=== PATIENT | female | born 1940 | race Caucasian/White ===

== ENCOUNTER 2016-09-21 11:29 | Emergency (ER) | payer MEDICARE, MEDICAID ==
[~2016-09-21] VITALS: Ht 165.1 cm; Wt 71.5 kg
[~2016-09-21 11:29] MED LIST: ACET-1757 PO; ACID1TAB7 PO; AMOX1TAB12 PO; ASPI325T4 PO; BISA10SU54 PR; CEFD300C2 PO; DOCU100T3 PO; DOXY100C15 PO; ENOX40SY4 SQ; ERGO500017 PO; FAMO-79 PO; FLUD0.1T PO; FLUT9.9S NAS; FURO-93 PO; GUAI-103 PO; HYDR-3138 PO; HYDR-3240 PO; LEVE500T53 PO; LISI1TAB7 PO; LOSA50TA6 PO; MAG355OR15 PO; MAGN30OR PO; MULT-115 PO; OXYC-302 PO; OXYC5SOL8 PO; OXYC5TAB3 PO; POTA20TA14 PO; SENN-1 PO; SIMV10TA3 PO; SIMV20TA PO; SULF1TAB3 PO; [UNRECOGNIZED DRUG - REMARK]
[2016-09-21 11:30] VITALS: BP 175/93
== END 2016-09-21 12:02 | disposition home or self-care (01) ==
LOC: ED 11:55
DX: Z76.0 Encounter for issue of repeat prescription (principal); I10 Essential (primary) hypertension; N19 Unspecified kidney failure; Z87.01 Personal history of pneumonia (recurrent)
CPT/HCPCS: 99283

== ENCOUNTER 2018-05-25 10:43 | Inpatient (IN) | payer MEDICAID, MEDICARE ==
[~2018-05-25] VITALS: Ht 166.4 cm; Wt 72.4 kg
[~2018-05-25 10:43] MED LIST changes: +ASPI325T17 PO; -ASPI325T4 PO; -CEFD300C2 PO; +CEFD300C37 PO; -HYDR-3138 PO; +HYDR-3237 PO; -LOSA50TA6 PO; +LOSA50TA7 PO; -SENN-1 PO; +SENN-92 PO; +SULF-169 PO; -SULF1TAB3 PO
[2018-05-25 12:47] LABS: MEAN CORPUSCULAR HEMOGLOBIN 24.7 pg (27.0-34.8); MEAN CORPUSCULAR HGB CONC 31.3 g/dL (32.4-35.8); MEAN CORPUSCULAR VOLUME 78.8 fL (80-100); MEAN PLATELET VOLUME 7.7 fL (7.4-10.4); PLATELET COUNT 557 x10^3/uL (130-400); RED BLOOD COUNT 4.52 x10^6/uL (3.82-5.3); RED CELL DISTRIBUTION WIDTH 17.7 % (9.6-15.2)
[2018-05-25 12:56] LABS: ALANINE AMINOTRANSFERASE 22 U/L (12-78); ALBUMIN 3.6 g/dL (3.4-5.0); ANION GAP 10 mmol/L (5-15); CALCIUM 8.8 mg/dL (8.5-10.1); CHLORIDE 111 mmol/L (98-107); CREATININE 0.93 mg/dL (0.55-1.02)
[2018-05-25 13:00] LABS: ALKALINE PHOSPHATASE 85 U/L (45-117); BILIRUBIN,TOTAL 0.5 mg/dL (0.2-1.0); TOTAL PROTEIN 6.9 g/dL (6.4-8.2)
[2018-05-25] MEDS ORDERED: SODIUM CHLORIDE FLUSH 10ML SYR IVF ONE (13:00)
[2018-05-25 13:05] LABS: HEMOGRAM NOTE RECHECKED; MD YES
[2018-05-25 13:09] LABS: EOS#(MANUAL) 0.23 x10^3/uL (0.0-0.4); EOS% (MANUAL) 4 % (1-7); LYMPH#(MANUAL) 1.68 x10^3/uL (1-3.4); LYMPHS% (MANUAL) 29 % (22-44); MONOS#(MANUAL) 0.64 x10^3/uL (0.3-2.7); MONOS% (MANUAL) 11 % (2-9); SEG#(MANUAL) 3.25 x10^3/uL (1.8-6.8); SEGS% (MANUAL) 56 % (42-75)
[2018-05-25 13:10] LABS: <PLATELET ESTIMATE> INCREASED; <PLT MORPHOLOGY> NORMAL PLT MORPH; ANISOCYTOSIS 1+; HYPOCHROMIA 1+; MICROCYTOSIS 1+
[2018-05-25] MEDS ORDERED: FUROSEMIDE 20 MG/2 ML IV ONE (13:30)
[2018-05-25] MEDS ORDERED: ENOXAPARIN 80 MG/0.8 ML SQ ONE (13:37)
[2018-05-25] MEDS ORDERED: SODIUM CHLORIDE FLUSH 10ML SYR IVF PRN (14:00)
[2018-05-25] MEDS ORDERED: FUROSEMIDE 20 MG/2 ML ONE (14:07)
[2018-05-25] MEDS ORDERED: ENOXAPARIN 80 MG/0.8 ML ONE (14:07)
[2018-05-25 14:14] LABS: MICROSCOPIC AUTO
[2018-05-25 14:16] LABS: CULTURE INDICATED? YES
[2018-05-25] MEDS ORDERED: POTA25TA4 PO (14:25)
[2018-05-25] MEDS ORDERED: LOSA25TA25 PO (14:25)
[2018-05-25] MEDS ORDERED: SIMV10TA3 PO (14:25)
[2018-05-25 16:49] LABS: ABSOLUTE RETICS # 0.064 x10^6/uL (0.5-2.5); RED BLOOD COUNT 4.52 x10^6/uL (3.82-5.3); RETICULOCYTE COUNT % 1.42 % (0.5-1.5)
[2018-05-25] MEDS ORDERED: FUROSEMIDE 40 MG/4 ML ONE (16:51)
[2018-05-25] MEDS ORDERED: DOCUSATE 100 MG CAPSULE PO PRN (17:00)
[2018-05-25] MEDS ORDERED: GUAIFENESIN/COD200MG-20MG/10ML LIQUID PO PRN (17:00)
[2018-05-25] MEDS: FUROSEMIDE 40 MG/4 ML IV SCH (17:00)
[2018-05-25] MEDS ORDERED: LABETALOL 5MG/ML, 20ML IVPush PRN (17:00)
[2018-05-25 17:07] LABS: THYROID STIMULATING HORMONE 2.14 mIU/L (0.358-3.740)
[2018-05-25 17:15] LABS: HEMOGLOBIN A1C 6.3 % (4.2-6.3)
[2018-05-25 17:22] LABS: TROPONIN I < 0.015 ng/mL (0.000-0.045)
[2018-05-25] MEDS ORDERED: CARVEDILOL 3.125 MG TABLET ONE (18:08)
[2018-05-25] MEDS: CARVEDILOL 3.125 MG TABLET PO SCH (18:10)
[2018-05-25 18:48] VITALS: BP 148/83
[2018-05-25 19:32] LABS: TROPONIN I < 0.015 ng/mL (0.000-0.045)
[2018-05-25 20:18] VITALS: BP 116/80
[2018-05-25] MEDS: ATORVASTATIN 40 MG TABLET PO SCH (21:11)
[2018-05-25 22:14] LABS: TROPONIN I < 0.015 ng/mL (0.000-0.045)
[2018-05-26] VITALS (8 sets, daily range): BP systolic 94–142; BP diastolic 61–89
[2018-05-26] MEDS: CARVEDILOL 3.125 MG TABLET PO SCH ×2 (04:56→17:11)
[2018-05-26 05:37] LABS: BASOPHILS # (AUTO) 0.05 x10^3/uL (0-0.1); BASOPHILS % (AUTO) 1 % (0-1); LYMPHOCYTES # (AUTO) 1.38 x10^3/uL (1-3.4); MD NO; MONOCYTES % (AUTO) 14 % (2-9)
[2018-05-26 05:48] LABS: CALCIUM 7.9 mg/dL (8.5-10.1); CHLORIDE 109 mmol/L (98-107)
[2018-05-26 05:53] LABS: ANION GAP 9 mmol/L (5-15); CHOL/HDL RATIO 2.5; CHOLESTEROL, TOTAL 111 mg/dL (140-239); CREATININE 0.85 mg/dL (0.55-1.02); HDL CHOL % 40 % (28-40); HDL CHOLESTEROL (DIRECT) 44 mg/dL (40-60); LDL CHOLESTEROL,CALCULATED 43 mg/dL (54-169); TRIGLYCERIDES 121 mg/dL (50-200); VLDL CHOLESTEROL 24 mg/dL (0-25)
[2018-05-26 07:15] LABS: EOSINOPHILS % (AUTO) 4 % (1-7); LYMPHOCYTES % (AUTO) 29 % (22-44); MEAN CORPUSCULAR HEMOGLOBIN 24.6 pg (27.0-34.8); MEAN CORPUSCULAR HGB CONC 31.1 g/dL (32.4-35.8); MEAN CORPUSCULAR VOLUME 79.2 fL (80-100); MEAN PLATELET VOLUME 8.4 fL (7.4-10.4); MONOCYTES # (AUTO) 0.65 x10^3/uL (0.2-0.8); NEUTROPHILS # (AUTO) 2.47 x10^3/uL (1.8-6.8); NEUTROPHILS % (AUTO) 52 % (42-75); PLATELET COUNT 553 x10^3/uL (130-400); RED BLOOD COUNT 4.22 x10^6/uL (3.82-5.3); RED CELL DISTRIBUTION WIDTH 18.1 % (9.6-15.2)
[2018-05-26] MEDS: FUROSEMIDE 40 MG/4 ML IV SCH ×2 (07:56→17:11)
[2018-05-26] MEDS: LOSARTAN 25MG TABLET PO SCH (07:56)
[2018-05-26] MEDS: APIXABAN 5 MG TABLET PO SCH ×2 (07:56→19:47)
[2018-05-26] MEDS ORDERED: FUROSEMIDE 40 MG/4 ML IV SCH (08:00)
[2018-05-26] MEDS: POTASSIUM CHLORIDE 20 MEQ TAB.ER.PRT PO SCH ×2 (12:18→17:10)
[2018-05-26] MEDS: ATORVASTATIN 40 MG TABLET PO SCH (19:47)
[2018-05-27 01:40] VITALS: BP 96/62
[2018-05-27 05:09] VITALS: BP 104/73
[2018-05-27] MEDS: CARVEDILOL 3.125 MG TABLET PO SCH ×2 (05:10→18:24)
[2018-05-27 05:26] LABS: BASOPHILS # (AUTO) 0.13 x10^3/uL (0-0.1); BASOPHILS % (AUTO) 3 % (0-1); EOSINOPHILS # (AUTO) 0.29 x10^3/uL (0-0.4); EOSINOPHILS % (AUTO) 6 % (1-7); LYMPHOCYTES # (AUTO) 1.98 x10^3/uL (1-3.4); LYMPHOCYTES % (AUTO) 41 % (22-44); MD NO; MEAN CORPUSCULAR HEMOGLOBIN 25.2 pg (27.0-34.8); MEAN CORPUSCULAR HGB CONC 31.7 g/dL (32.4-35.8); MEAN CORPUSCULAR VOLUME 79.5 fL (80-100); MEAN PLATELET VOLUME 8.1 fL (7.4-10.4); MONOCYTES # (AUTO) 0.57 x10^3/uL (0.2-0.8); MONOCYTES % (AUTO) 12 % (2-9); NEUTROPHILS # (AUTO) 1.91 x10^3/uL (1.8-6.8); NEUTROPHILS % (AUTO) 39 % (42-75); PLATELET COUNT 594 x10^3/uL (130-400); RED BLOOD COUNT 4.26 x10^6/uL (3.82-5.3); RED CELL DISTRIBUTION WIDTH 17.8 % (9.6-15.2)
[2018-05-27 05:30] LABS: ANION GAP 5 mmol/L (5-15); CALCIUM 8.1 mg/dL (8.5-10.1); CHLORIDE 107 mmol/L (98-107); CREATININE 0.96 mg/dL (0.55-1.02)
[2018-05-27 07:25] VITALS: BP 102/69
[2018-05-27] MEDS ORDERED: REGADENOSON 0.4 MG/5 ML SYRINGE ONE (08:12)
[2018-05-27] MEDS: FUROSEMIDE 40 MG/4 ML IV SCH ×2 (10:37→18:24)
[2018-05-27] MEDS: POTASSIUM CHLORIDE 20 MEQ TAB.ER.PRT PO SCH (10:37)
[2018-05-27] MEDS: LOSARTAN 25MG TABLET PO SCH (10:37)
[2018-05-27] MEDS: APIXABAN 5 MG TABLET PO SCH ×2 (10:37→20:05)
[2018-05-27] MEDS: ACETAMINOPHEN 325 MG TABLET PO PRN (10:52)
[2018-05-27] MEDS ORDERED: FERROUS SULFATE 325 MG TABLET ONE (10:56)
[2018-05-27] MEDS: FERROUS SULFATE 325 MG TABLET PO SCH (11:00)
[2018-05-27 13:22] LABS: OCCULT BLOOD NEGATIVE (NEGATIVE)
[2018-05-27 14:30] VITALS: BP 109/60
[2018-05-27 18:33] VITALS: BP 122/80
[2018-05-27] MEDS: ATORVASTATIN 40 MG TABLET PO SCH (20:05)
[2018-05-28 00:15] VITALS: BP 110/71
[2018-05-28 05:03] LABS: ANION GAP 7 mmol/L (5-15); CALCIUM 8.1 mg/dL (8.5-10.1); CHLORIDE 109 mmol/L (98-107)
[2018-05-28 05:04] LABS: CREATININE 0.95 mg/dL (0.55-1.02)
[2018-05-28 05:30] VITALS: BP 124/85
[2018-05-28] MEDS: CARVEDILOL 3.125 MG TABLET PO SCH ×2 (05:31→16:30)
[2018-05-28 07:57] VITALS: BP 111/74
[2018-05-28] MEDS: FUROSEMIDE 40 MG/4 ML IV SCH (08:03)
[2018-05-28] MEDS: POTASSIUM CHLORIDE 20 MEQ TAB.ER.PRT PO SCH (08:05)
[2018-05-28] MEDS: FERROUS SULFATE 325 MG TABLET PO SCH (08:05)
[2018-05-28] MEDS: APIXABAN 5 MG TABLET PO SCH (08:05)
[2018-05-28] MEDS: LOSARTAN 25MG TABLET PO SCH (08:05)
[2018-05-28] MEDS ORDERED: REGADENOSON 0.4 MG/5 ML SYRINGE ONE (08:41)
[2018-05-28] MEDS: ACETAMINOPHEN 325 MG TABLET PO PRN (11:40)
[2018-05-28 13:07] VITALS: BP 104/69
[2018-05-28] MEDS ORDERED: CARV3.1212 PO (15:41)
[2018-05-28] MEDS ORDERED: APIX5TAB PO (15:41)
[2018-05-28] MEDS ORDERED: POTA20TA6 PO (15:41)
[2018-05-28] MEDS ORDERED: ATOR40TA78 PO (15:41)
[2018-05-28] MEDS ORDERED: FERR-51 PO (15:41)
[2018-05-28] MEDS ORDERED: FURO40TA6 PO (15:41)
[2018-05-28 16:21] VITALS: BP 131/72
[2018-05-28] MEDS ORDERED: FUROSEMIDE 40 MG TABLET PO SCH (17:00)
== END 2018-05-28 16:50 | disposition home or self-care (01) | DRG 291 ==
LOC: ED 12:45 → EDIP 13:43 → 5SO 18:26 → DCLOUNGE 05-28 16:38
PROVIDERS: ADMIT Internal Medicine; ATTEND Internal Medicine
DX: I13.0 Hypertensive heart and chronic kidney disease with heart failure and stage 1 through stage 4 chronic kidney disease, or unspecified chronic kidney disease (principal); I50.33 Acute on chronic diastolic (congestive) heart failure; D68.69 Other thrombophilia; I48.91 Unspecified atrial fibrillation; N18.3 Chronic kidney disease, stage 3 (moderate); E78.5 Hyperlipidemia, unspecified; G40.909 Epilepsy, unspecified, not intractable, without status epilepticus; I34.0 Nonrheumatic mitral (valve) insufficiency; I49.8 Other specified cardiac arrhythmias; Z79.01 Long term (current) use of anticoagulants; Z82.49 Family history of ischemic heart disease and other diseases of the circulatory system; Z87.891 Personal history of nicotine dependence
CPT/HCPCS: 36415; 71045; 78452; 80048; 80053; 80061; 81001; 82272; 82728; 83036; 83540; 83550; 83735; 83880; 84100; 84443; 84484; 85025; 85045; 87086; 93005; 93017; 93306; 96372; 96374; 96376; 99285; G0378; J1650; J1940; J2785; A9502; C9898

== ENCOUNTER 2018-05-29 18:46 | Emergency (ER) | payer MEDICARE ==
[~2018-05-29] VITALS: Ht 165.1 cm; Wt 68.7 kg
[~2018-05-29 18:46] MED LIST changes: +APIX5TAB PO; +ATOR40TA78 PO; +CARV3.1212 PO; +FERR-51 PO; +FURO40TA6 PO; +LOSA25TA25 PO; +POTA20TA6 PO; +POTA25TA4 PO
--- NOTE | 2018-05-29 19:35 | NUR ---
Pt presents for dizziness today as well as concern that she is unable to get new rxs filled. Pt DC from here yesterday after 4 days stay for new onset AFIB. Pt states she was unable to make it back to pharmacy to knot [facility] new meds today before they closed and they are not open weekends. Pt became dizzy this evening and concerned to come to ED
[2018-05-29 20:22] LABS: BASOPHILS # (AUTO) 0.06 x10^3/uL (0-0.1); BASOPHILS % (AUTO) 1 % (0-1); EOSINOPHILS # (AUTO) 0.23 x10^3/uL (0-0.4); EOSINOPHILS % (AUTO) 4 % (1-7); LYMPHOCYTES # (AUTO) 1.68 x10^3/uL (1-3.4); LYMPHOCYTES % (AUTO) 29 % (22-44); MD NO; MEAN CORPUSCULAR HEMOGLOBIN 24.6 pg (27.0-34.8); MEAN CORPUSCULAR VOLUME 79.4 fL (80-100); MEAN PLATELET VOLUME 7.7 fL (7.4-10.4); MONOCYTES # (AUTO) 0.56 x10^3/uL (0.2-0.8); MONOCYTES % (AUTO) 10 % (2-9); NEUTROPHILS # (AUTO) 3.19 x10^3/uL (1.8-6.8); NEUTROPHILS % (AUTO) 56 % (42-75); PLATELET COUNT 620 x10^3/uL (130-400); RED BLOOD COUNT 4.34 x10^6/uL (3.82-5.3)
[2018-05-29 20:35] LABS: ALBUMIN 3.5 g/dL (3.4-5.0); ANION GAP 7 mmol/L (5-15); CALCIUM 8.6 mg/dL (8.5-10.1); CHLORIDE 108 mmol/L (98-107); CREATININE 0.96 mg/dL (0.55-1.02)
[2018-05-29 20:39] LABS: TROPONIN I < 0.015 ng/mL (0.000-0.045)
[2018-05-29] MEDS ORDERED: HYDROcodone/APAP 5/325 TABLET PO ONE (22:00)
[2018-05-29] MEDS ORDERED: FUROSEMIDE 40 MG TABLET PO ONE (22:00)
[2018-05-29] MEDS ORDERED: FUROSEMIDE 40 MG TABLET ONE (22:29)
[2018-05-29] MEDS ORDERED: HYDROcodone/APAP 5/325 TABLET ONE (22:29)
[2018-05-29 22:34] VITALS: BP 130/88
== END 2018-05-29 22:49 | disposition home or self-care (01) ==
LOC: ED 20:48
DX: R42 Dizziness and giddiness (principal); I10 Essential (primary) hypertension; Z76.0 Encounter for issue of repeat prescription; I48.91 Unspecified atrial fibrillation
CPT/HCPCS: 36415; 80048; 82040; 84484; 85025; 93005; 99284